=== PATIENT | female | born 1990 | race Caucasian/White ===

== ENCOUNTER 2019-09-11 12:06 | Emergency (ER) | payer BC, OTHER ==
[~2019-09-11] VITALS: Ht 167.6 cm; Wt 54.4 kg
[2019-09-11 12:31] LABS: URINE BILIRUBIN NEGATIVE (Negative); URINE BLOOD NEGATIVE (Negative); URINE CLARITY CLEAR; URINE COLOR YELLOW; URINE GLUCOSE-RANDOM* NEGATIVE (Negative); URINE KETONES NEGATIVE (Negative); URINE LEUKOCYTES-REFLEX NEGATIVE (Negative); URINE NITRITE-REFLEX NEGATIVE (Negative); URINE PROTEIN (DIPSTICK) NEGATIVE (Negative); URINE SPECIFIC GRAVITY <= 1.005 (1.005-1.035); URINE UROBILINOGEN 0.2 E.U./dl (0.2-1.0)
[2019-09-11 12:46] LABS: ABSOLUTE NEUTROPHILS 2.4 thou/uL (1.4-8.2); BASOPHILS 0.7 % (0.0-2.0); EOSINOPHILS 0.8 % (0.0-3.0); HEMATOCRIT 37.9 % (37.0-47.0); HEMOGLOBIN 12.6 gm/dL (12.0-15.0); LYMPHOCYTES 39.4 % (24.0-44.0); MCHC 33.2 g/dL (28.0-37.0); MCV 93.3 fL (80.0-100.0); PLATELET COUNT 253 thou/uL (150-400); POLYS 51.1 % (36.0-66.0); RBC 4.06 mil/uL (4.20-5.00); RDW 12.3 % (10.5-14.5); WBC 4.7 thou/uL (4.0-11.0)
[2019-09-11 12:51] LABS: CALCIUM 8.9 mg/dL (8.5-10.1); CREATININE 0.6 mg/dL (0.6-1.0); POTASSIUM 3.6 mmol/L (3.5-5.1)
[2019-09-11 12:57] LABS: TOTAL BILIRUBIN 0.7 mg/dL (<0.1-1.0); TOTAL PROTEIN 7.2 g/dL (6.4-8.2)
[2019-09-11] MEDS ORDERED: ZOFRAN ODT4 MG PO (14:30)
[2019-09-11] MEDS ORDERED: NORCO 5-325 TA1 EAC1 PO (14:30)
[2019-09-11] MEDS ORDERED: BENTYL 20 MG TA20 M1 PO (14:30)
[2019-09-11 14:40] VITALS: BP 91/70
== END 2019-09-11 14:40 | disposition home or self-care (01) ==
LOC: ER 12:06
PROVIDERS: Nurse Practitioner Family
DX: R10.9 Unspecified abdominal pain (principal)